=== PATIENT | female | born 1970 | race Caucasian/White ===

== ENCOUNTER 2016-12-07 20:03 | Emergency (ER) | payer BC, OTHER ==
[~2016-12-07] VITALS: Ht 180.3 cm; Wt 83.9 kg
--- NOTE | ~2016-12-07 | EKG ---
[address] [address] ELECTROCARDIOGRAM REPORT Name: MARIE GOINS Room #: [facility]#: [id number] Admission: 12/07/16 Attend Phys: Discharge: 12/07/16 Date of : 70 Report #: [id number] THIS REPORT FOR: //name// [facility] ED Test Date: 2016-12-07 Test Time: 20:12:19 Pat Name: MARIE MEDEIROS Department: Room: Gender: F [employer] Finisher: Jonel QUINN : 1970 Requested By: Maxine Anderson Order Number: [id number] MD: Christian Spann Measurements Intervals [place] Rate: 89 P: 65 HI: 163 QRS: 20 QRSD: 89 T: 19 QT: 376 QTc: 458 Interpretive Statements Sinus rhythm No significant abnormality No previous ECG available for comparison Electronically Signed On 12-08-2016 7:55:45 CDT by Christian Spann [email or web address] <ELECTRONICALLY SIGNED> By: Christian Spann MD, [facility] 12/08/16 0755 11 11 Christian Spann MD, FACC /EPI
[2016-12-07] MEDS ORDERED: TOPAMAX50 MG PO (20:29)
[2016-12-07] MEDS ORDERED: DEPAKOTE 250MG250 M1 PO (20:29)
[2016-12-07 21:19] LABS: HEMATOCRIT 42.7 % (37.0-47.0); HEMOGLOBIN 14.5 gm/dL (12.0-15.0); MCH 31.5 pg (26.0-34.0); MCV 92.6 fL (80.0-100.0); PLATELET COUNT 183 thou/uL (150-400); RBC 4.61 mil/uL (4.20-5.00); RDW 12.9 % (10.5-14.5); WBC 10.5 thou/uL (4.0-11.0)
[2016-12-07 21:23] LABS: MANUAL DIFF YES
[2016-12-07 21:29] LABS: ANION GAP 12 mmol/L (7-16); BUN 17 mg/dL (7-18); CHLORIDE 102 mmol/L (98-107); CO2 25 mmol/L (21-32); CREATININE 0.7 mg/dL (0.6-1.0); GLUCOSE 89 mg/dL (74-106); POTASSIUM 3.7 mmol/L (3.5-5.1); SODIUM 139 mmol/L (136-145)
[2016-12-07 21:36] LABS: TROPONIN-I < 0.04 ng/mL (<0.04-0.07)
[2016-12-07 22:02] LABS: ABSOLUTE NEUTROPHILS 5.9 thou/uL (1.4-8.2); ANISOCYTOSIS SLIGHT; LARGE PLATELETS RARE; TOTAL CELL COUNT 100
[2016-12-07] MEDS ORDERED: NORCO 5-325 TA1 EACH PO (22:18)
[2016-12-07] MEDS ORDERED: REGLAN 5 MG TAB5 MG PO (22:18)
[2016-12-07 22:42] VITALS: BP 117/75
== END 2016-12-07 22:51 | disposition home or self-care (01) ==
LOC: ER 20:03
PROVIDERS: Emergency Medicine
DX: R07.9 Chest pain, unspecified (principal); R11.2 Nausea with vomiting, unspecified; Z90.721 Acquired absence of ovaries, unilateral; Z90.49 Acquired absence of other specified parts of digestive tract; Z88.0 Allergy status to penicillin; Z88.8 Allergy status to other drugs, medicaments and biological substances